=== PATIENT | male | born 1945 | race Two or more races ===

== ENCOUNTER 2018-04-10 06:13 | Day surgery (SDC) | payer MEDICARE, BC ==
--- NOTE | 2018-04-09 18:30 | Pre-Procedure Note/Attestation ---
Pre-Procedure Note/Attestation Complete Prior to Procedure Planned Procedure: left Procedure Narrative: 1. Microsuspension laryngoscopy 2. 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 Recent onset of hoarseness-on fiberoptic exam tag on left vocal fold. Attestation I attest that I discussed the nature of the procedure; its benefits; risks and complications; and alternatives (and the risks and benefits of such alternatives ), prior to the procedure, with the patient (or the patient's legal aircraft sales representative). I attest that, if there was a reasonable possibility of needing a blood transfusion, the patient (or the patient's legal aircraft sales representative) was given the [place] [facility] [employer] [facility] standardized written summary, pursuant to the Michael Anthony Blood Safety Act ([place] Health and Safety Code # 1645, as amended). I attest that I re-evaluated the patient just prior to the surgery and that there has been no change in the patient's H&P.: Doug Suarez MD Apr 09, 2018 18:30
--- NOTE | 2018-04-09 18:31 | Brief Operative Note ---
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 Recent onset of hoarseness-on fiberoptic exam tag on left vocal fold. Procedure: 1. Microsuspension laryngoscopy 2. Biopsy left vocal cord Post-op Diagnosis: same as pre-op Surgeon: Doug Suarez Incising Machine Operator: NONE Additional Surgeons: none Anesthesiologist: Sowmya Anesthesia: general Specimen: yes Complications: none Condition: stable Fluids: D5LR Estimated Blood Loss: minimal Drains: none Packing: none Implant(s) used?: No Doug Suarez MD Apr 09, 2018 18:31
--- NOTE | 2018-04-09 18:34 | Discharge Instructions ---
Discharge Instructions Discharge Instructions Follow up with: 04/18/18 8:30 AM Diet: regular Resume Normal Activity?: Yes Activity: light activity Pneumonia Vaccine: pt refused vaccine Influenza Vaccine (Jan to Jun): pt refused vaccine Follow Up Orders Pt has printed instructions for pre and post op care POst op meds Tylenol Return to Work/School on: Apr 23, 2018 Special Instructions No whispering or yelling For Surgical Patients May shower: Yes For Congestive Heart Failure Reminder Report to your physician any weight gain of 5 pounds or more in one week. Doug Suarez MD Apr 09, 2018 18:34
--- NOTE | 2018-04-09 22:30 | Pre-op HX & Phy Repo 2 SIG ---
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 Last few months he had a hoarse voice. A look with the scope, his left cord had a growth on it. He waited six weeks to see it went away, it did not. So, now we are going to biopsy it to see if anything is going on. PAST MEDICAL HISTORY: Significant for the above treatment for vocal cord cancer as well as postradiation hypothyroidism, hypertension, hypercholesteremia, BPH, and allergic rhinitis. PAST SURGICAL HISTORY: Microsuspension laryngoscopy, biopsy of the vocal cord, and TURP. MEDICATIONS: Clozapine, Flonase, Synthroid, losartan, metoprolol tartrate, and Crestor. SOCIAL HISTORY: He has never was a smoker. with two children. Denies drug issues. He is a retired computer systems design analyst. PHYSICAL EXAMINATION: VITAL SIGNS: He is 5 feet 8 inches, 165 pounds. BMI 25.09. Blood pressure was 120/80 in my office last week, 98.6, was temperature, heart rate 72, and respiratory rate 13. HEENT: Eyes, PERRLA, EOMI. Lips, tongue, pharynx, and neck all normal. No masses in his neck. Ears, positive light reflex. Normal canals. Fiberoptic laryngoscopy, he has got a small growth on his left vocal cord. Questionable as to whether it is cancer or not. HEART: Normal S1, S2. No S3 or S4. No murmur, bruit, gallop, or rub. ABDOMEN: Soft and nontender. Normoactive bowel sounds. EXTREMITIES: Grossly normal. NEUROLOGIC: Cranial nerves II through XII grossly normal. GENITOURINARY: Not done as not indicated for this surgery. He is followed by his primary care doctor on a regular basis. IMPRESSION: He is stable for microsuspension laryngoscopy and biopsy of vocal cord. Doug Suarez M.D. DR: LESA JOB#: [id number] CC: TALYA
[~2018-04-10] VITALS: Ht 170.2 cm; Wt 74.8 kg
[2018-04-10] VITALS (8 sets, daily range): BP systolic 121–150; BP diastolic 56–90
[~2018-04-10 06:13] MED LIST: ACETAMINOPHEN325 M1 ORAL
[2018-04-10] MEDS ORDERED: ceFAZolin sod 1 GM in D5W 55 ML IV ONE (07:20)
[2018-04-10] MEDS ORDERED: Zemuron 50mg/5ml Inj IV ONE (07:22)
[2018-04-10] MEDS ORDERED: Midazolam 2mg/2ml Inj ONE (07:24)
[2018-04-10] MEDS ORDERED: fentaNYL 100 mcg/2 mL IV ONE (07:24)
[2018-04-10] MEDS ORDERED: Dexamethasone 4mg/ml vial IVP ONE (07:30)
[2018-04-10] MEDS ORDERED: Lidocaine 1% MPF 10mg/ml 5ml ONE (07:52)
[2018-04-10] MEDS ORDERED: Dexamethasone 4mg/ml vial ONE (07:52)
[2018-04-10] MEDS ORDERED: Propofol 200mg/20ml IV ONE ×2 (07:52→08:23)
--- NOTE | 2018-04-10 09:26 | 48 Hour Post Anesthesia Eval ---
Post Anesthesia Evaluation Procedure: microsuspension laryngoscopy Date of Evaluation: Apr 10, 2018 Time of Evaluation: 09:25 Blood Pressure Systolic: 128 0: 57 Pulse Rate: 70 Respiratory Rate: 14 Temperature (Fahrenheit): 97.5 O2 Sat by Pulse Oximetry: 100 Airway: patent Nausea: No Vomiting: No Hydration Status: adequate Cardiopulmonary Status: stable Mental Status/LOC: patient returned to baseline Post-Anesthesia Complications: none Follow-up care needed: N/A Frida Almeida CRNA Apr 10, 2018 09:26
--- NOTE | 2018-04-10 09:27 | Immediate Post-Op Evaluation ---
Immediate Post-Op Evalulation Immediate Post-Op Evalulation Procedure: microsuspension laryngoscopy Date of Evaluation: Apr 10, 2018 Time of Evaluation: 08:20 IV Fluids: 700 Blood Pressure Systolic: 150 Blood Pressure Diastolic: 90 Pulse Rate: 74 Respiratory Rate: 14 O2 Sat by Pulse Oximetry: 98 Temperature (Fahrenheit): 97.5 Pain Score (1-10): 0 Nausea: No Vomiting: No Complications none Patient Status: awake, reacts, patent Hydration Status: adequate Drug: ancef Given Within 1 Hr of Incision: Yes Time Given: 07:35 Frida Almeida CRNA Apr 10, 2018 09:27
--- NOTE | 2018-04-10 09:29 | Anethesia Preoperative Eval ---
Anesthesia Pre-op PMH/ROS General ASA Score: ASA 2 Mallampati Score Class I : Soft palate, uvula, fauces, pillars visible Class II: Soft palate, uvula, fauces visible Class III: Soft palate, base of uvula visible Class IV: Only hard plate visible Mallampati Classification: Class II Surgeon: josh Diagnosis: vc tumor Surgical Procedure: vocal cord vx Anesthesia History: none Family History: no anesthesia problems Allergies: Coded Allergies: No Known Allergies (Verified Allergy, Mild, 05/26/08) Medications: see eMAR Patient NPO?: Yes NPO Date: Apr 09, 2018 NPO Time: 23:59 Past Medical History Cardiovascular: Reports: HTN; Denies: CAD, ID, valve dz, arrhythmia, other Pulmonary: Denies: asthma, COPD, DANYELLE, other Gastrointestinal/Genitourinary: Denies: GERD, CRI, ESRD, other Neurologic/Psychiatric: Denies: dementia, CVA, depression/anxiety, TIA, other Endocrine: Denies: DM, hypothyroidism, steroids, other HEENT: Denies: cataract (L), cataract (R), glaucoma, YANKTON (L), YANKTON (R), other Hematology/Immune: Denies: anemia, DVT, bleeding disorder, other Musculoskeletal/Integumentary: Denies: OA, RA, DJD, DDD, edema, other PMH Narrative: hx vocal tumor s/p radiation PSxH Narrative: vocal cord bx Anesthesia Pre-op Phys. Exam Physician Exam Last Vital Signs Date Time Temp Pulse Resp B/P (MAP) Pulse Ox O2 Delivery O2 Flow Rate FiO2 04/10/18 09:00 98.0 66 15 128/82 100 Room Air 04/10/18 08:20 8 Constitutional: NAD Neurologic: CN 2-12 intact Cardiovascular: RRR Respiratory: CTA Gastrointestinal: S/NT/ND Airway Exam Mallampati Classification 3; with hoarseness Mallampati Score: Class III MO: limited Neck: normal TMD: 2fb ROM: limited Dentures: no upper, no lower Anesthesia Pre-op A/P Risk Assessment & Plan Assessment: denies recent changes in health Plan: general Status Change Before Surgery: No Pre-Antibiotics Drug: ancef Given Within 1 Hr of Incision: Yes Time Given: 07:35 Frida Almeida CRNA Apr 10, 2018 09:29
--- NOTE | 2018-04-10 17:30 | Operative Note - Dictated ---
DATE OF OPERATION: 04/10/2018 SURGEON: Doug Suarez M.D. MILIEU TECHNICIAN: None. ANESTHESIOLOGIST: Pan. ANESTHESIA: Oral endotracheal anesthesia, 6.5 endotracheal tube. INDICATION FOR PROCEDURE: The patient with a history of vocal cord cancer and radiation approximately 9-10 years ago. He has recurrent hoarseness and a tag on his left vocal cord. This is being biopsied. PREOPERATIVE DIAGNOSIS: The patient with a history of vocal cord cancer and radiation approximately 9-10 years ago. He has recurrent hoarseness and a tag on his left vocal cord. This is being biopsied. POSTOPERATIVE DIAGNOSIS: The patient with a history of vocal cord cancer and radiation approximately 9-10 years ago. He has recurrent hoarseness and a tag on his left vocal cord. This is being biopsied. FINDINGS: The patient with a history of vocal cord cancer and radiation approximately 9-10 years ago. He has recurrent hoarseness and a tag on his left vocal cord. This is being biopsied. PROCEDURES: 1. Microsuspension laryngoscopy. 2. Biopsy of left true vocal fold. TECHNIQUE: The patient was prepped and draped in usual manner. Time-out was performed. All agreed as to the procedure and equipment required. Tooth guard was placed to protect the teeth. A Dedo scope was placed and vocal cords visualized as well as a skin tag on the left cord. Microscope was brought into place utilizing microdissection scissors and a left biter. The tag was pulled medially and cut anterior and superior and removed. A small pledget was held on this for about a minute. It was then removed. There was no further bleeding. EBL: 1 mL. COUNTS: None. DRAINS: None. SPONGE AND NEEDLE COUNT: Correct. The patient was awake, extubated in the operating room prior to transfer to the recovery room. It is now approximately an hour later, I just saw him in the postop recovery room and he is fine/stable. Doug Suarez M.D. DR: ANGELINE JOB#: [id number] CC: TALYA
== END 2018-04-10 09:45 | disposition home or self-care (01) ==
LOC: SUR 06:13
DX: J38.1 Polyp of vocal cord and larynx (principal); I10 Essential (primary) hypertension; E78.00 Pure hypercholesterolemia, unspecified; N40.0 Benign prostatic hyperplasia without lower urinary tract symptoms; E89.0 Postprocedural hypothyroidism; J30.9 Allergic rhinitis, unspecified; Z85.21 Personal history of malignant neoplasm of larynx
CPT/HCPCS: 31536; J0690; J1100; J2405; J2704; J3010; 94003; 94150; J2250